=== PATIENT | female | born 1960 | race Caucasian/White ===

== ENCOUNTER 2016-09-29 15:42 | Emergency (ER) | payer OTHER ==
--- NOTE | ~2016-09-29 | CR150 ---
[facility] A Service [facility] RADIOLOGY TEXT RESULTS PATIENT: FABIOLA MONTANA LOCATION: [facility] : 60 UNIT #: [id number] AGE: [address]: HOWARD DESAI SEX: F ORDER DR: [id number] [facility] [address] [place], [place] [address] [id number] E MR#: [id number] Acc #: [id number] NAME: FABIOLA MONTANA. : 1960 SEX: F STUDY DATE/TIME: 09/29/2016 14:10 UNIT: [facility] ROOM: STUDY DESCRIPTION: CR Hip Min 2 Views Lt Attending Physician: Howard Desai Aprn Referring Physician: Luke Self Referred Ordering Physician: Jr Jones M.D. Primary Care Physician: Richie Turner M.D. MEDICAL IMAGING REPORT This report is preliminary unless electronic signature is present EXAM AP pelvis and left hip. DATE OF EXAMINATION 09/29/2016. COMPARISON Examination is dated 05/02/2016. HISTORY Pain left hip. History of multiple surgeries, fell 2 weeks ago. The left hip infection. TECHNIQUE An AP view of the pelvis and an oblique view of the left hip were submitted. FINDINGS The patient has had apparent removal of the left hip prosthesis. There is a spacer in place. The patient has cerclage wires along the proximal femur. The appearance of the left hip is unchanged from the patient's last study. No acute fractures are seen. There is osteoarthritis of the right hip. CONCLUSION No interim change. Dictated by... Byron Boone M.D. THIS IS AN ELECTRONICALLY VERIFIED REPORT [facility] A Service [facility] RADIOLOGY TEXT RESULTS PATIENT: FABIOLA MONTANA LOCATION: [facility] : 60 UNIT #: [id number] AGE: [address]: HOWARD DESAI SEX: F ORDER DR: Byron Boone M.D. at 09/29/2016 5:07 PM RANJITH/renee TD: 09/29/2016 16:35 JOB #: [id number] MEDICAL IMAGING REPORT COPY
--- NOTE | ~2016-09-29 | CR106 ---
[facility] A Service of [facility] & [facility] RADIOLOGY TEXT RESULTS PATIENT: FABIOLA MONTANA LOCATION: [facility] : 60 UNIT #: [id number] AGE: [address]: HOWARD DESAI SEX: F ORDER DR: [id number] [facility] [address] [place], [place] [address] [id number] E MR#: [id number] Acc #: [id number] NAME: FABIOLA MONTANA. : 1960 SEX: F STUDY DATE/TIME: 09/29/2016 16:59 UNIT: [facility] ROOM: STUDY DESCRIPTION: CR Femur 2 Views Lt Attending Physician: Howard Desai Aprn Referring Physician: Self Referral-Refer Use Only Ordering Physician: Ed Juan Francisco Lim M.D. Primary Care Physician: Richie Turner M.D. MEDICAL IMAGING REPORT This report is preliminary unless electronic signature is present EXAM Left femur, 09/29/2016 INDICATIONS 55-year-old female with femur pain since August of this year, worse since a fall 2 weeks ago. TECHNIQUE Frontal and lateral views of the left femur were performed. Correlation is made with hip series 04/30/2016. Comparison also made with 05/02/2016. FINDINGS The patient is status post left hip replacement. Surgical hardware appears to be in satisfactory position. No acute fracture identified. No retained opaque foreign body. There is degenerative change of the left hip. IMPRESSION 1. No acute fracture. Postoperative changes of left hip replacement. Dictated by... Adin Goodman M.D. THIS IS AN ELECTRONICALLY VERIFIED REPORT Adin Goodman M.D. at 09/30/2016 10:17 AM LYRIC/yandy TD: 09/29/2016 23:58 JOB #: [id number] MEDICAL IMAGING REPORT COPY
[~2016-09-29 15:42] MED LIST: B-121000 MC1 PO; CALCIUM 600 + D1 TAB PO; CALCIUM 600 +1 EAC4 PO; CENTRUM SILVER PO; CLARITIN10 M3 PO; COUMADIN PO; COUMADIN10 MG PO; COUMADIN5 MG PO; CUBICIN IV; DOCUSATE SODIU100 MG PO; ENBREL50 MG/M1 SQ; EX-LAX15 MG PO; FERROUS GLUCON324 MG PO; FLEXERIL10 MG PO; GLIPIZIDE10 MG PO; LISINOPRIL-HCTZ1 T14 PO; METFORMIN HCL500 M1 PO; METHOTREXATE2.5 MG PO; MILK OF MAGNESIA PO; NICOTINE TRANSDE7 MG EXT; NORCO 10/3251 TAB PO; PERCOCET 10/31 UDTA1 PO; PERCOCET 5-3251 TAB PO; PROBIOTIC1 EAC1 PO; TRAMADOL HCL50 M2 PO; TRAZODONE HCL100 MG PO; VOLTAREN75 MG PO; ZANAFLEX4 M1 PO; ZANTAC150 MG PO
[2016-10-08] MEDS ORDERED: AMLODIPINE BESYL5 MG PO (09:12)
[2016-10-08] MEDS ORDERED: COUMADIN5 MG PO (09:13)
[2016-10-08] MEDS ORDERED: FLEXERIL10 MG PO (09:15)
[2016-10-08] MEDS ORDERED: CALCIUM 5001 TAB PO (09:15)
[2016-10-08] MEDS ORDERED: MULTI-VITAMIN1 EAC1 PO (09:16)
[2016-10-08] MEDS ORDERED: IRON1 TAB PO (09:17)
[2016-10-08] MEDS ORDERED: PROBIOTIC1 EAC3 PO (09:18)
[2016-10-08] MEDS ORDERED: PERCOCET10 PO (09:19)
[2016-10-08] MEDS ORDERED: MILK OF MAGNESIA PO (09:20)
[2016-10-08] MEDS ORDERED: HAIR, SKIN & N1 EAC1 PO (09:21)
== END 2016-09-29 18:32 | disposition home or self-care (01) ==
LOC: CFTX 15:42
DX: S70.02XA Contusion of left hip, initial encounter (principal); E11.9 Type 2 diabetes mellitus without complications; I10 Essential (primary) hypertension; F17.210 Nicotine dependence, cigarettes, uncomplicated; Z90.710 Acquired absence of both cervix and uterus; Z88.2 Allergy status to sulfonamides; Z88.1 Allergy status to other antibiotic agents; Z79.899 Other long term (current) drug therapy; W19.XXXA Unspecified fall, initial encounter
CPT/HCPCS: 73502; 73552; 99284

== ENCOUNTER → 2016-10-08 | Outpatient (CLI) | payer OTHER ==
[~2016-10-08] MED LIST changes: +AMLODIPINE BESYL5 MG PO; +CALCIUM 5001 TAB PO; +HAIR, SKIN & N1 EAC1 PO; +IRON1 TAB PO; +MULTI-VITAMIN1 EAC1 PO; +PERCOCET10 PO; +PROBIOTIC1 EAC3 PO; +VANCOMYCIN1.25 GM/21 IV
--- NOTE | ~2016-10-08 | EKG ---
PATIENT: FABIOLA MONTANA UNIT #: [id number] Ventricular Rate: 86 BPM Atrial Rate: 86 BPM P-R Interval: 148 ms QRS Duration: 90 ms Q-T Interval: 382 ms QTC Calculation(Bezet): 457 ms P [place]: 31 degrees Calculated R [place]: -7 degrees Calculated T [place]: 37 degrees Diagnosis Line: Normal sinus rhythm Diagnosis Line: Low voltage QRS Diagnosis Line: Poor R wave progression questionable lead position Diagnosis Line: or body habitus Diagnosis Line: Abnormal ECG Diagnosis Line: No previous ECGs available Diagnosis Line: Confirmed by DANK LOERA MD ([id number]) on 10/09/2016 Diagnosis Line: 5:38:54 PM INTERPRETING MD: LUZ MARIA KOENIG
--- NOTE | ~2016-10-08 | CR63 ---
[facility] A Service of [facility] & [facility] RADIOLOGY TEXT RESULTS PATIENT: FABIOLA MONTANA LOCATION: [facility] : 60 UNIT #: [id number] AGE: [address]: Neto Polo MD SEX: F ORDER DR: [id number] [facility] [address] [place], [place] [address] [id number] O MR#: [id number] Acc #: [id number] NAME: FABIOLA MONTANA : 1960 SEX: F STUDY DATE/TIME: 10/08/2016 10:47 UNIT: [facility] ROOM: STUDY DESCRIPTION: CR Chest 2 View Attending Physician: Neto Polo M.D. Ordering Physician: Neto Polo M.D. Primary Care Physician: Richie Turner M.D. MEDICAL IMAGING REPORT This report is preliminary unless electronic signature is present EXAM Chest 2 views 10/08/2016 1047 hours HISTORY 55-year-old woman with history of hypertension and shortness of air, preop for repeat left hip surgery. COMPARISON None. FINDINGS Portable upright chest demonstrates normal cardiac, mediastinal and hilar contours. The lungs are clear and there are no effusions. Orthopedic anchors are noted at the right proximal humerus. IMPRESSION No acute cardiopulmonary findings. Dictated by... Kemi Dasilva M.D. THIS IS AN ELECTRONICALLY VERIFIED REPORT Kemi Dasilva M.D. at 10/08/2016 2:29 PM NIEVES/joycelyn TD: 10/08/2016 13:36 JOB #: [id number] MEDICAL IMAGING REPORT COPY
--- NOTE | ~2016-10-08 | CO ---
Unit #: [id number] #: [id number] Patient: FABIOLA MONTANA [id number] [address] [place], [place] [address] [id number] O MR#: [id number] NAME: FABIOLA MONTANA ROOM: Age: 55 Sex: F Admission Date: 10/08/2016 : 1960 Attending Physician: Neto Polo M.D. Primary Care Physician: Richie Turner M.D. CONSULTATION REPORT REASON FOR CONSULTATION Preop evaluation. 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 She states that she has spent many months in bed secondary to this procedure and she has had many months of IV antibiotics to get to this point. She states that she has mild pain, which is typical for her. She denies fevers, nausea, vomiting, and diarrhea. PAST MEDICAL HISTORY Diet-controlled diabetes, anemia, hypertension, obesity, left total hip and then removal secondary to MRSA. PAST SURGICAL HISTORY She has had right rotator cuff repair, knee arthroscopy, back surgery, hysterectomy, cholecystectomy. FAMILY HISTORY Coronary artery disease, diabetes, hypertension, high cholesterol. SOCIAL HISTORY The patient quit smoking in April of last year. Denies alcohol or illicit drug use. REVIEW OF SYSTEMS 10-point review of systems obtained and negative except as per HPI. ALLERGIES Sulfa, fluoroquinolones. HOME MEDICATIONS Zantac 150 mg p.o. q.h.s., Claritin 10 mg daily, trazodone 100 mg p.o. q.h.s., Norvasc 5 mg daily, Coumadin 7.5 mg p.o. daily, Flexeril 10 mg p.o. t.i.d., calcium 500 mg daily, multivitamin daily, iron tablet daily, Probiotic daily, Percocet 10/325 one p.o. q.4 to 6 hours p.r.n., milk of magnesia p.o. b.i.d. PHYSICAL EXAMINATION VITAL SIGNS: Blood pressure 116/86, heart rate 91, temperature 97.7. GENERAL: A 55-year-old female, in no acute distress, appears stated age. HEENT: Pupils are equally round. Extraocular movements are intact. Mucous membrane are dry. Unit #: [id number] #: [id number] Patient: FABIOLA MONTANA NECK: Supple. No JVD. No lymphadenopathy. CARDIAC: Regular rate and rhythm. No murmurs, gallops, or rubs. LUNGS: Clear to auscultation bilaterally. ABDOMEN: Nontender, nondistended. Positive bowel sounds. EXTREMITIES: No clubbing, cyanosis, or edema. Warm and dry. PSYCH: Alert and oriented x3. Affect is appropriate. NEUROLOGIC: Cranial nerves II through XII are intact grossly. The patient moves all extremities equally on purpose. SKIN: No rash, bruises, or ulcers. MUSCULOSKELETAL: Some left hip pain and tenderness on palpation with some mild swelling, but no redness. DIAGNOSTIC STUDIES LABORATORY RESULTS: CRP is 4.1. Hemoglobin A1c is 6.2. White count 11.6, otherwise CBC is normal. Creatinine is 1.2 with GFR of 50, glucose is 120, otherwise CMP is normal. UA is negative. INR is 1.4. IMAGING STUDIES: Chest x-ray is ordered and pending. ASSESSMENT AND PLAN 1. Preoperative evaluation for revised cardiac risk index. The patient has no risk factors as compared to less than 1% risk of cardiac incident in the perioperative period. I have discussed this with the patient. She agrees to proceed. 2. Chronic anticoagulation. The patient has been asked to stop her Coumadin today given her surgery is in 5 days. 3. Diabetes. The patient is diet controlled. Her A1c is 6.2. Sugars will be followed, but it is likely no medications will be needed. 4. Hypertension. The patient will continue her antihypertensives postoperatively. 5. Prophylaxis. Deep venous thrombosis prophylaxis per Orthopedics, status post procedure. Dictated by... Eulogio Du M.D. NURY/alcides TD: 10/09/2016 04:31 JOB #: [id number] CONSULTATION REPORT X Eulogio Du MD X CONSULTATION REPORT
[2016-10-08 08:58] LABS: HEMOGLOBIN 12.1 gm/dL (12.0-16.0); MEAN CELL VOLUME 80.2 FL (83-96); MEAN CORPUSCULAR HEMOGLOBIN 25.6 PG (28-34); MEAN CORPUSCULAR HGB CONC 31.9 g/dL (30-36); MEAN PLATELET VOLUME 7.8 FL (6.5-11.5); RED BLOOD COUNT 4.74 X10e (3.90-5.30); RED CELL DISTRIBUTION WIDTH 17.3 % (11.0-15.5); URINE APPEARANCE CLOUDY; URINE BILIRUBIN NEG (NEG); URINE BLOOD NEG (NEG); URINE COLOR DK YELLOW; URINE GLUCOSE NEG (NEG); URINE KETONE NEG (NEG); URINE LEUKOCYTE ESTERASE NEG (NEG); URINE NITRATE NEG (NEG); URINE PH 5.5 (5-8); URINE PROTEIN NEG (NEG); URINE SPECIFIC GRAVITY 1.023 (1.003-1.035); URINE UROBILINOGEN 0.2 MG/DL (NEG); WHITE BLOOD COUNT 11.6 X10e3 (4.0-10.5)
[2016-10-08 09:01] LABS: URINE SOURCE CLEAN CATCH
[2016-10-08 09:02] LABS: CULTURE INDICATED? NO
[2016-10-08 09:11] LABS: INR 1.4; PROTHROMBIN TIME (PATIENT) 15.4 SECONDS (9.6-11.5)
[2016-10-08 09:57] LABS: ALBUMIN SERUM 3.6 g/dL (3.5-5.0); BILIRUBIN,TOTAL 0.3 mg/dL (0.2-2.0); BUN/CREATININE RATIO 11.66; CALCIUM SERUM 10.7 mg/dL (8.4-10.2); CREATININE SERUM 1.2 mg/dL (0.6-1.4); GLOM FILT RATE Estimated 49.6 mL/min (>60); POTASSIUM 4.3 mmol/L (3.5-5.1); PROTEIN TOTAL SERUM 7.9 g/dL (6.0-8.3)
== END | disposition home or self-care (01) ==
LOC: CAMB 08:16
PROVIDERS: Orthopaedic Surgery
DX: Z01.818 Encounter for other preprocedural examination (principal); R94.31 Abnormal electrocardiogram [ECG] [EKG]
CPT/HCPCS: 36415; 71020; 80053; 81003; 83036; 85027; 85610; 85652; 86140; 86850; 86900; 86901; 87070; 93005

== ENCOUNTER 2016-10-13 08:39 | Inpatient (IN) | payer OTHER ==
--- NOTE | ~2016-10-13 | CR144 ---
[facility] A Service of [facility] & [facility] RADIOLOGY TEXT RESULTS PATIENT: FABIOLA MONTANA LOCATION: [facility] 45- : 60 UNIT #: [id number] AGE: [address]: Neto Polo MD SEX: F ORDER DR: [id number] [facility] [address] [place], [place] [address] [id number] I MR#: [id number] Acc #: [id number] NAME: FABIOLA MONTANA. : 1960 SEX: F STUDY DATE/TIME: 10/13/2016 13:42 UNIT: [facility] ROOM: [facility] STUDY DESCRIPTION: CR Hip 1 View Lt Attending Physician: Neto Polo M.D. Ordering Physician: Neto Polo M.D. Primary Care Physician: Richie Turner M.D. MEDICAL IMAGING REPORT This report is preliminary unless electronic signature is present EXAM Left hip single view INDICATIONS 55-year-old female with left total hip arthroplasty. Initial postoperative exam. COMPARISON 09/29/2016 FINDINGS Interval revision of a left hip arthroplasty. Hardware intact. Alignment anatomic. IMPRESSION Interval revision left total hip arthroplasty. Dictated by... Pool De León M.D. THIS IS AN ELECTRONICALLY VERIFIED REPORT Pool De León M.D. at 10/14/2016 4:43 PM ARS/to TD: 10/13/2016 17:35 JOB #: [id number] MEDICAL IMAGING REPORT COPY
--- NOTE | ~2016-10-13 | CR144 ---
[facility] A Service of [facility] & [facility] RADIOLOGY TEXT RESULTS PATIENT: FABIOLA MONTANA LOCATION: [facility] 452- : 60 UNIT #: [id number] AGE: [address]: Neto Polo MD SEX: F ORDER DR: [id number] [facility] [address] [place], [place] [address] [id number] I MR#: [id number] Acc #: [id number] NAME: FABIOLA MONTANA. : 1960 SEX: F STUDY DATE/TIME: 10/13/2016 11:45 UNIT: [facility] ROOM: STUDY DESCRIPTION: CR Hip 1 View Lt Attending Physician: Neto Polo M.D. Ordering Physician: Neto Polo M.D. Primary Care Physician: Richie Turner M.D. MEDICAL IMAGING REPORT This report is preliminary unless electronic signature is present EXAM AP view left hip HISTORY SUPPLIED Intraoperative radiographs during left total hip COMPARISON Examination is compared directly to a prior film of 09/29 FINDINGS The shorter stemmed prosthesis been removed and there is now a long stem prosthesis within the femoral shaft passing well below the third cerclage wire. There has been previous hardware. No obvious fractures are identified. The cement apparently has been removed from the proximal shaft. CONCLUSION Intraoperative film of presumably during the left hip revision. Please see Dr. Polo's operative note. Dictated by... Byron Boone M.D. THIS IS AN ELECTRONICALLY VERIFIED REPORT Byron Boone M.D. at 10/14/2016 8:00 AM RANJITH/kaveh TD: 10/13/2016 14:09 JOB #: [id number] MEDICAL IMAGING REPORT COPY
--- NOTE | ~2016-10-13 | OR ---
Unit #: [id number] #: [id number] Patient: FABIOLA MONTANA [id number] [place] [id number] [facility]. [place], [place] [address] [id number] I MR#: [id number] NAME: FABIOLA MONTANA. ROOM: 452 Date of Procedure: 10/13/2016 Admission Date: 10/13/2016 Surgeon: Neto Polo M.D. : 1960 Attending Physician: Neto Polo M.D. Primary Care Physician: Richie Turner M.D. OPERATIVE REPORT PREOPERATIVE DIAGNOSIS Retained spacer, left hip. POSTOPERATIVE DIAGNOSIS Retained spacer, left hip. PROCEDURES PERFORMED Removal of spacer and reinsertion, left total hip. ASSISTANTS Boone and Martha. ANESTHESIA General. BLOOD LOSS 200 mL. DESCRIPTION OF PROCEDURE The patient was brought to the holding room, given 2 g of Ancef and 1500 mg of vancomycin. She was brought back to the operating room, given a general anesthetic, placed in decubitus position with the left side up. The left hip was prepped and draped in a sterile fashion. The old skin incision was opened, subcutaneous dissected away and a posterior approach was carried out to the hip. The joint was entered. Clear fluid was encountered. This was cultured. The hip was dislocated. The spacer was removed. We then obtained soft tissue from the acetabulum and from the femur for frozen section. Now, the femur was retracted anteriorly. The acetabulum was reamed up to a size 57. While we were waiting for the frozen section to come back, we prepared the femur, reaming it by hand at first and then with a conical reamer up to a 16 x 190. X-ray was obtained that showed this was an excellent fit. We then obtained the x-ray and it showed a good fit. The frozen sections came back, one showed 2 to 3 polys per high-powered field and the other showed 10 to 12 polys per high-powered field. We then made the decision, because the fluid had looks so clear and even though her sedimentation rate and CRP are elevated. She is a known rheumatoid patient. We elected to reimplant the hip and then treat her with 4 to 6 weeks of IV vancomycin and then long-term suppression, so the 58 cup was opened and inserted into the acetabulum. Two screws were positioned through it and a trial neutral 58, 36 mm inside diameter liner was positioned. We then opened the 16 x 190 RECLAIM stem from [employer]oft and impacted this with an excellent fit. We then Unit #: [id number] #: [id number] Patient: FABIOLA MONTANA reamed with a 20 and then a 24 proximal body reamer and used an 85 mm body trial. This was reduced. We found we needed a +5 head to give the appropriate leg length and stability. We then opened the real body and impacted this, used the torque wrench to lock it into place and then the proximal screw was positioned. Another trial reduction was carried out. We then opened the +5, 36 ceramic head. This was applied and the hip was reduced and it was stable in all directions. The wound had been irrigated with both Betadine and bacitracin. The periarticular ropivacaine mixture was injected all 100 mL. We then closed the posterior capsule with 0 Vicryl, the fascia with a running 0 STRATAFIX suture, the subcutaneous was closed with 0 and 2-0 Vicryl, and chantal in the skin. Abduction pillow positioned and her general anesthetic reversed. assistant professor of archaeology, Angie Shook was present throughout the entire case. Dictated by... Oscar Ng/alcides TD: 10/13/2016 16:43 JOB #: [id number] OPERATIVE REPORT X Neto Polo MD X PROCEDURE OPERATIVE NOTE
--- NOTE | ~2016-10-13 | DS ---
Unit #: [id number] #: [id number] Patient: FABIOLA GUEVARA [id number] [address] [place], [place] [address] [id number] I MR#: [id number] NAME: FABIOLA GUEVARA ROOM: 452 Age: 55 Sex: F Admission Date: 10/13/2016 : 1960 Discharge Date: 10/16/2016 Attending Physician: Neto Polo M.D. Primary Care Physician: Richie Turner M.D. DISCHARGE SUMMARY ADMITTING DIAGNOSIS Resolved left total hip infection. DISCHARGE DIAGNOSIS Resolved left total hip infection. HOSPITAL COURSE On 10/13/2016, Ms. Guevara underwent a left total hip re-implant. She tolerated the procedure well. She was transported to the 4th floor. She underwent physical therapy, medical management, and anticoagulation therapy. She is doing well and is ready to be discharged. DISPOSITION Stable at discharge. Discharged home. DISCHARGE MEDICATIONS Medications on discharge include her routine home medications, in addition to Coumadin and Percocet 10/325 as well as IV vancomycin x4 weeks dose per pharmacy. FOLLOWUP AND INSTRUCTIONS Ms. Guevara is going to be discharged home. The patient is on Coumadin for DVT prophylaxis and PT and INR are to be drawn every Thursday and . Call the results into [phone], attn: Maggy. Skin chantal are to be discontinued two weeks postop. Please apply Steri-Strips 1/4 of an inch apart, white JODY hose to be worn during the day and can be removed in the evening. The patient can shower in one week and can drive after seen by Dr. Polo at the 6-week postop appointment. The patient is on IV vancomycin for 4 weeks. Followup appointment with Dr. Polo is in 6 weeks. Please call our office for that appointment date and time. Physical therapy is to be done for dislocation precautions and ambulation. The patient is weightbearing as tolerated. Dictated by... Ramez Roman for Neto Polo M.D. MARIA/alcides TD: 10/17/2016 12:58 JOB #: [id number] Unit #: [id number] #: [id number] Patient: NANFABIOLA DISCHARGE SUMMARY X Angie Shook X DISCHARGE SUMMARY
--- NOTE | ~2016-10-13 | XA166 ---
[facility] A Service of [facility] & [facility] RADIOLOGY TEXT RESULTS PATIENT: FABIOLA MONTANA LOCATION: [facility] 452-01 : 60 UNIT #: [id number] AGE: [address]: Neto Polo MD SEX: F ORDER DR: [id number] [facility] [address] [facility]. [place], [place] [address] [id number] I MR#: [id number] Acc #: [id number] NAME: FABIOLA MONTANA. : 1960 SEX: F STUDY DATE/TIME: 10/14/2016 14:20 UNIT: [facility] ROOM: [facility] STUDY DESCRIPTION: XA PICC Line Placement WO Port Attending Physician: Neto Polo M.D. Ordering Physician: Neto Polo M.D. Primary Care Physician: Richie Turner M.D. MEDICAL IMAGING REPORT This report is preliminary unless electronic signature is present EXAM PICC placement. INDICATIONS 55-year-old female who needs IV antibiotics. PRE-PROCEDURE The procedure was explained to the patient and/or patient financial sales representative including risks, benefits, potential complications and potential for alternative forms of treatment. Informed consent was obtained, and prior to initiating the procedure a formal timeout procedure was performed. PROCEDURE Using full standard sterile barrier technique, including caps, gowns, gloves, masks, as well as sterile skin preparation and standard sterile draping, the right arm was prepped and draped in the usual fashion, and real-time sterile ultrasound guidance was used to localize an arm vein and to confirm vessel patency. A hard copy ultrasound image was recorded. After local anesthesia with 1% Xylocaine, the vein was punctured using real-time sterile ultrasound guidance, and an 0.018 guidewire was advanced into the superior vena cava, using fluoroscopic guidance. A 38 cm 4-Israeli single-lumen PICC was then measured and deployed with the tip positioned in the superior vena cava. The position of the line was documented with a radiographic image. The line was secured in place with an adhesive dressing and an antibiotic patch was applied. Total fluoro time was 0.1 minutes. IMPRESSION Successful placement of a 38 cm 4-Israeli single-lumen PowerPICC via the right arm under ultrasound and fluoroscopic guidance. The tip of the PICC is in good position in the superior vena cava. [facility] A Service of [facility] & [facility] RADIOLOGY TEXT RESULTS PATIENT: FABIOLA MONTANA LOCATION: [place] [address] : 60 UNIT #: [id number] AGE: [address]: Neto Polo MD SEX: F ORDER DR: Dictated by... Pool De León M.D. THIS IS AN ELECTRONICALLY VERIFIED REPORT Pool De León M.D. at 10/16/2016 7:33 AM Arabella TD: 10/15/2016 07:13 JOB #: [id number] MEDICAL IMAGING REPORT COPY
[~2016-10-13 08:39] MED LIST changes: -VANCOMYCIN1.25 GM/21 IV
[2016-10-13 09:52] LABS: INR 0.9; PROTHROMBIN TIME (PATIENT) 9.5 SECONDS (9.6-11.5)
[2016-10-14 03:36] LABS: HEMATOCRIT 28.2 % (35.0-45.0); HEMOGLOBIN 8.8 gm/dL (12.0-16.0)
[2016-10-14 04:02] LABS: BUN/CREATININE RATIO 17.27; CALCIUM SERUM 8.7 mg/dL (8.4-10.2); CREATININE SERUM 1.1 mg/dL (0.6-1.4); GLOM FILT RATE Estimated 54.8 mL/min (>60); MAGNESIUM 2.2 mg/dL (1.6-3.0); POTASSIUM 4.8 mmol/L (3.5-5.1)
[2016-10-14 13:07] LABS: PROTHROMBIN TIME (PATIENT) 10.1 SECONDS (9.6-11.5)
[2016-10-15 04:32] LABS: HEMOGLOBIN 8.2 gm/dL (12.0-16.0)
[2016-10-15 04:55] LABS: PROTHROMBIN TIME (PATIENT) 10.8 SECONDS (9.6-11.5)
[2016-10-15 05:02] LABS: BLOOD UREA NITROGEN 20 mg/dL (9-23); CALCIUM SERUM 8.5 mg/dL (8.4-10.2); CARBON DIOXIDE 26 mmol/L (22-31); CHLORIDE 107 mmol/L (100-111); GLOM FILT RATE Estimated ABOVE60 mL/min (>60); GLUCOSE FASTING 129 mg/dL (70-110); MAGNESIUM 1.8 mg/dL (1.6-3.0); POTASSIUM 3.6 mmol/L (3.5-5.1); SODIUM 139 mmol/L (135-145)
[2016-10-16 04:10] LABS: HEMATOCRIT 24.9 % (35.0-45.0); MEAN CELL VOLUME 81.2 FL (83-96); MEAN CORPUSCULAR HEMOGLOBIN 26.1 PG (28-34); MEAN CORPUSCULAR HGB CONC 32.1 g/dL (30-36); MEAN PLATELET VOLUME 8.7 FL (6.5-11.5); RED BLOOD COUNT 3.07 X10e (3.90-5.30); RED CELL DISTRIBUTION WIDTH 17.8 % (11.0-15.5); WHITE BLOOD COUNT 9.5 X10e3 (4.0-10.5)
[2016-10-16 04:24] LABS: INR 1.1; PROTHROMBIN TIME (PATIENT) 11.7 SECONDS (9.6-11.5)
[2016-10-16 04:33] LABS: BLOOD UREA NITROGEN 15 mg/dL (9-23); BUN/CREATININE RATIO 18.75; CARBON DIOXIDE 25 mmol/L (22-31); CHLORIDE 107 mmol/L (100-111); CREATININE SERUM 0.8 mg/dL (0.6-1.4); GLOM FILT RATE Estimated ABOVE60 mL/min (>60); GLUCOSE FASTING 93 mg/dL (70-110); MAGNESIUM 1.9 mg/dL (1.6-3.0); SODIUM 138 mmol/L (135-145)
[2016-10-16] MEDS ORDERED: VANCOMYCIN1.25 GM/21 IV (09:18)
== END 2016-10-16 14:36 | disposition home health service (06) | DRG 467 ==
LOC: CSUR 08:39 → CPACUOF 10:40 → C4B 15:24
PROVIDERS: Nurse Practitioner; Orthopaedic Surgery
PROC: 0SRB0J9 Replacement of Left Hip Joint with Synthetic Substitute, Cemented, Open Approach (ICD-10-PCS; 2016-10-13)
PROC: 0SPB08Z Removal of Spacer from Left Hip Joint, Open Approach (ICD-10-PCS; principal; 2016-10-13 11:30)
PROC: 02HV33Z Insertion of Infusion Device into Superior Vena Cava, Percutaneous Approach (ICD-10-PCS; 2016-10-14)
PROC: B518YZA Fluoroscopy of Superior Vena Cava using Other Contrast, Guidance (ICD-10-PCS; 2016-10-14)
PROC: B548ZZA Ultrasonography of Superior Vena Cava, Guidance (ICD-10-PCS; 2016-10-14)
DX: Z47.32 Aftercare following explantation of hip joint prosthesis (principal); E87.1 Hypo-osmolality and hyponatremia; D62 Acute posthemorrhagic anemia; E11.9 Type 2 diabetes mellitus without complications; E66.9 Obesity, unspecified; D64.9 Anemia, unspecified; K21.9 Gastro-esophageal reflux disease without esophagitis; Z86.14 Personal history of Methicillin resistant Staphylococcus aureus infection; Z87.891 Personal history of nicotine dependence; Z90.49 Acquired absence of other specified parts of digestive tract; Z90.710 Acquired absence of both cervix and uterus; Z68.36 Body mass index [BMI] 36.0-36.9, adult; Z88.2 Allergy status to sulfonamides
CPT/HCPCS: 73501; 76937; 77001; 80048; 80202; 82947; 83735; 85014; 85018; 85027; 85610; 87070; 87075; 87205; 88305; 88311; 88331; 97110; 97116; 97162; 97165; 97530; 97535; C1713; C1751; C1776; J0131; J0171; J0690; J0735; J1100; J1170; J1642; J1650; J1885; J2250; J2405; J2795; J3010; J3370

== ENCOUNTER 2016-11-10 21:17 | Inpatient (IN) | payer OTHER ==
--- NOTE | ~2016-11-10 | CR144 ---
[facility] A Service of [facility] RADIOLOGY TEXT RESULTS PATIENT: FABIOLA MONTANA LOCATION: [facility] 461-01 : 60 UNIT #: [id number] AGE: [address]: Neto Polo MD SEX: F ORDER DR: [id number] [facility] [address] [place], [place] [address] [id number] I MR#: [id number] Acc #: [id number] NAME: FABIOLA MONTANA : 1960 SEX: F STUDY DATE/TIME: 11/11/2016 15:18 UNIT: [facility] ROOM: [facility] STUDY DESCRIPTION: CR Hip 1 View Lt Attending Physician: Neto Polo M.D. Ordering Physician: Neto Polo M.D. Primary Care Physician: Richie Turner M.D. MEDICAL IMAGING REPORT This report is preliminary unless electronic signature is present EXAM Left hip, frontal view only. INDICATION Status post hip reduction. Pain. Dislocation today. TECHNIQUE Frontal view of the left hip was performed and compared with 10/13/2016. FINDINGS Skin chantal have been removed. Postop changes of left hip replacement are present. No acute fracture. Alignment appears satisfactory on this single projection. Surgical hardware otherwise intact. IMPRESSION Satisfactory postoperative appearance of the left hip following total left hip replacement. No acute fracture. No significant change from 10/13/2016 for technical factors. Dictated by... Adin Goodman M.D. THIS IS AN ELECTRONICALLY VERIFIED REPORT Adin Goodman M.D. at 11/12/2016 8:38 AM Travis TD: 11/12/2016 04:32 JOB #: [id number] MEDICAL IMAGING REPORT Page 1 of 1 COPY
--- NOTE | ~2016-11-10 | HP ---
Unit #: [id number] #: [id number] Patient: FABIOLA MONTANA [id number] [facility]. [place], [place] [address] [id number] MR#: [id number] NAME: FABIOLA MONTANA ROOM: 461 Age: 55 Sex: F Admission Date: 11/10/2016 : 1960 Attending Physician: Neto Polo M.D. Primary Care Physician: Richie Turner M.D. HISTORY AND PHYSICAL REASON FOR ADMISSION Left hip dislocation. HISTORY OF PRESENT ILLNESS The patient is a very pleasant 55-year-old female who was admitted last evening with a dislocated hip. The patient reports she bent over to put her bag in the closet and immediately felt a sudden pop and severe pain in her left hip. She was unable to ambulate. Ultimately, taken x-rays in the chart did show the patient has a left hip dislocation. The patient denies any numbness, tingling, shortness of air, chest pain. PAST MEDICAL HISTORY 1. Diet controlled diabetes. 2. History of anemia. 3. Hypertension. 4. Obesity. 5. 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 PAST SURGICAL HISTORY 1. Right rotator cuff. 2. Left knee arthroscopy. 3. Back surgery. 4. Hysterectomy. 5. Cholecystectomy. 6. As above. FAMILY HISTORY Coronary artery disease, diabetes, hypertension, cholesterol. SOCIAL HISTORY The patient quit smoking April of last year. Denied any alcohol. REVIEW OF SYSTEMS Ten complete systems were reviewed and negative other than the H and P. ALLERGIES Sulfa and quinolones. MEDICATIONS 1. Xanax 150 mg at bedtime. 2. Claritin 10 mg daily. 3. Trazodone 100 mg every evening. 4. Amlodipine 5 mg daily. Unit #: [id number] #: [id number] Patient: FABIOLA MONTANA 5. Coumadin 5 mg daily. 6. Flexeril 10 mg three times a day. 7. Calcium, one tablet daily. 8. Multivitamin daily. 9. Iron daily. 10. Probiotic, one daily. 11. Percocet 10/325 every four hours p.r.n. pain. 12. Milk of magnesia 30 mL b.i.d. 13. Multivitamin for hair, skin and nails. 14. Vancomycin 1.25 grams IV q.12. PHYSICAL EXAMINATION GENERAL: The patient is well developed, well nourished, in no acute distress. She does complain of left hip pain. VITAL SIGNS: Her temperature is 97.8, blood pressure 115/76, heart rate 77 and regular, respirations 18. HEENT: Normocephalic, atraumatic. PERRLA. Extraocular movements intact. Conjunctivae clear. NECK: Supple. No thyromegaly. LUNGS: Clear to auscultation. No accessory muscle use. Equal expansion bilaterally. CARDIOVASCULAR: S1, S2. ABDOMEN: Soft, nontender, nondistended. Positive bowel sounds. MUSCULOSKELETAL: Gait not appreciated. Examination of the patient's left lower extremity revealed patient's left lower extremity is shorter than her right consistent with dislocation. Manipulation was not done because of known hip dislocation. She did have 2+ pulses in her lower extremities. SKIN: Warm and dry and intact. DIAGNOSTIC STUDIES LABORATORY: None. ASSESSMENT Left hip dislocation. PLAN Will check a few labs while she is here. The patient will get a clear liquid breakfast then NPO. Will plan on a closed reduction of her left hip. I did explain the risks and expected outcome. The patient completely understands and wished to proceed. Dictated by Adrian Amaya P.A.-C- for Neto Polo M.D. LINDSAY/anastasiia TD: 11/11/2016 10:32 JOB #: [id number] Unit #: [id number] #: [id number] Patient: FABIOLA MONTANA HISTORY AND PHYSICAL Page 1 of 1 X X HISTORY AND PHYSICAL
--- NOTE | ~2016-11-10 | DS ---
Unit #: [id number] #: [id number] Patient: FABIOLA MONTANA [id number] [facility]. [place], [place] [address] [id number] MR#: [id number] NAME: FABIOLA MONTANA ROOM: 461 Age: 55 Sex: F Admission Date: 11/10/2016 : 1960 Discharge Date: 11/11/2016 Attending Physician: Neto Polo M.D. Primary Care Physician: Richie Turner M.D. DISCHARGE SUMMARY ADMITTING DIAGNOSIS Dislocated left total hip. DISCHARGE DIAGNOSIS Dislocated left total hip. PROCEDURE IN THE HOSPITAL Closed reduction under anesthesia. OPERATIVE NOTE The patient brought into the hospital after sustaining a closed dislocation of her left hip when she was reaching into a closet and stooping down. She underwent closed reduction and she will be discharged home this evening as long as she is comfortable enough. Her medications are her routine home medicines. She has pain medicine at home as well as Coumadin, which she will restart. She she is weightbearing as tolerated but she is to follow hip precautions. Her condition on discharge is improved and her disposition is to home. Dictated by... Oscar Ng/meri TD: 11/12/2016 10:51 JOB #: [id number] DISCHARGE SUMMARY Page 1 of 1 X Neto Polo MD X DISCHARGE SUMMARY
--- NOTE | ~2016-11-10 | OR ---
Unit #: [id number] #: [id number] Patient: FABIOLA MONTANA [id number] [facility]. [place], [place] [address] [id number] MR#: [id number] NAME: FABIOLA MONTANA ROOM: 461 Date of Procedure: 11/11/2016 Admission Date: 11/10/2016 Surgeon: Neto Polo M.D. : 1960 Attending Physician: Neto Polo M.D. Primary Care Physician: Richie Turner M.D. OPERATIVE REPORT PREOPERATIVE DIAGNOSIS Dislocated left total hip. POSTOPERATIVE DIAGNOSIS Dislocated left total hip. PROCEDURE PERFORMED Closed reduction under anesthesia. DESCRIPTION OF PROCEDURE The patient was brought to the operating room, given a general anesthetic with muscle relaxation with flexion, adduction, and longitudinal traction of the hip. We were able to palpate the hip reducing. An x-ray was obtained that showed concentric reduction of the hip in good position of the components. Her general anesthetic was reversed and she was transferred to the recovery room. Dictated by... Oscar Ng/alcides TD: 11/12/2016 04:35 JOB #: [id number] OPERATIVE REPORT Page 1 of 1 X Neto Polo MD X PROCEDURE OPERATIVE NOTE
[~2016-11-10 21:17] MED LIST changes: +VANCOMYCIN1.25 GM/21 IV
[2016-11-11 02:51] LABS: BASOPHIL# 0.1 X10e3 (0-0.3); BASOPHIL% 0.5 % (0-2.5); EOSINOPHIL# 0.6 X10e3 (0-0.7); EOSINOPHIL% 4.4 % (0.0-7.0); HEMATOCRIT 30.6 % (35.0-45.0); HEMOGLOBIN 9.5 gm/dL (12.0-16.0); LYMPHOCYTE# 4.7 X10e3 (1.0-3.5); MEAN CELL VOLUME 78.4 FL (83-96); MEAN CORPUSCULAR HEMOGLOBIN 24.3 PG (28-34); MEAN PLATELET VOLUME 8.4 FL (6.5-11.5); MONOCYTE# 1.3 X10e3 (0-1.0); MONOCYTE% 8.9 % (3.0-12.0); NEUTROPHIL# 7.5 X10e3 (1.5-7.1); NEUTROPHIL% 53.2 % (40-75); PLATELET COUNT 371 X10e3 (140-420); RED CELL DISTRIBUTION WIDTH 17.3 % (11.0-15.5); WHITE BLOOD COUNT 14.2 X10e3 (4.0-10.5)
[2016-11-11 02:54] LABS: DIFF IND NO
[2016-11-11 03:05] LABS: INR 1.1; PROTHROMBIN TIME (PATIENT) 11.4 SECONDS (9.6-11.5)
[2016-11-11 03:16] LABS: BUN/CREATININE RATIO 16.92; CALCIUM SERUM 9.1 mg/dL (8.4-10.2); CREATININE SERUM 1.3 mg/dL (0.6-1.4); GLOM FILT RATE Estimated 46.2 mL/min (>60); POTASSIUM 3.8 mmol/L (3.5-5.1)
== END 2016-11-11 19:14 | disposition home or self-care (01) | DRG 561 ==
LOC: C4C 21:17
PROVIDERS: Orthopaedic Surgery
PROC: 0SWBXJZ Revision of Synthetic Substitute in Left Hip Joint, External Approach (ICD-10-PCS; principal; 2016-11-11 14:30)
DX: T84.021A Dislocation of internal left hip prosthesis, initial encounter (principal); I10 Essential (primary) hypertension; E11.9 Type 2 diabetes mellitus without complications; E66.9 Obesity, unspecified; Z96.642 Presence of left artificial hip joint; Z86.14 Personal history of Methicillin resistant Staphylococcus aureus infection; Z87.891 Personal history of nicotine dependence; Z88.2 Allergy status to sulfonamides; Z83.3 Family history of diabetes mellitus; Z82.49 Family history of ischemic heart disease and other diseases of the circulatory system; Z90.710 Acquired absence of both cervix and uterus; Z90.49 Acquired absence of other specified parts of digestive tract; K21.9 Gastro-esophageal reflux disease without esophagitis
CPT/HCPCS: 73501; 80048; 85025; 85610; J0690; J1170; J2250; J2405; J3010; J3370